=== PATIENT | male | born 1955 | race Caucasian/White ===

== ENCOUNTER 2019-12-16 07:20 | Day surgery (SDC) | payer MEDICARE ==
[~2019-12-16] VITALS: Ht 186.7 cm; Wt 124.9 kg
[~2019-12-16 07:20] MED LIST: ASPIR-LOW81 MG PO; CARDI-OMEGA1000 MG PO; CATAPRES 0.1MG0.1 MG PO; CLONIDINE0.1 MG PO; DIABETA5 MG PO; EFFEXOR-XR150 MG PO; FISH OIL CONC1000 MG PO; FORTAMET1000 MG PO; FORTAMET500 MG PO; GLUCOPHAGE1000 MG PO; GLYBURIDE MICRON3 MG PO; HCTZ 25MG25 MG PO; HYDRALAZINE HCL25 MG PO; LISINOPRIL; LOPID 600M600 MG/TAB PO; MELLARIL; METFORMIN500 MG PO; MULTIPLE VITAMI1 TA5 PO; MULTIPLE VITAMI1 TAB PO; MVI; NEPHRO-VITE1 TA1 PO; PRAVASTATIN40 MG PO; PRILOSEC 20MG20 MG PO; THIORIDAZINE HC25 MG PO; TOPROL XL100 MG PO; VESICARE5 MG PO; VITAMIN B COMPL1 TA1 PO; ZOCOR40 MG PO; ZOLOFT; ZOLOFT 100MG100 MG PO
[2019-12-16 08:07] LABS: HEMATOCRIT 44.5 % (42.0-52.0); HEMOGLOBIN 14.8 g/dl (13.5-18.0); MEAN CELL VOLUME 86 fl (80.0-100.0); MEAN CORPUSCULAR HEMOGLOBIN 29 pg (27.0-31.0); MEAN CORPUSCULAR HGB CONC 33 g/dl (33.0-37.0); MEAN PLATELET VOLUME 11.3 fl (7.4-10.4); PLATELET COUNT 206 K/mm3 (130-400); RED BLOOD COUNT 5.19 M/mm3 (4.20-5.60)
[2019-12-16 08:16] LABS: CALCIUM 9.4 mg/dL (8.4-10.2); CREATININE, serum 0.69 (0.66-1.25); POTASSIUM 4.5 mmol/L (3.4-5.0)
[2019-12-16 08:18] LABS: INR 1.2 (0.8-3.0); PROTHROMBIN TIME 13.4 SECONDS (9.7-12.8)
[2019-12-16 08:29] VITALS: BP 95/82; PULSE 78; TEMP 98.7
[2019-12-16] MEDS ORDERED: ELIQUIS 5MG PO (08:35)
[2019-12-16] MEDS ORDERED: GLUCOPHAGE1000 MG PO (08:35)
[2019-12-16] MEDS ORDERED: BETAPACE 120MG120 MG PO (08:36)
[2019-12-16] MEDS ORDERED: WELLBUTRIN 100100 MG PO (08:37)
[2019-12-16] MEDS ORDERED: TRULICITY1.5 MG/0.5 SQ (08:39)
[2019-12-16] MEDS ORDERED: MELATONIN5 M1 SL (08:40)
[2019-12-16] MEDS ORDERED: PROTONIX 40MG T40 MG PO (08:40)
[2019-12-16] MEDS ORDERED: ACTOS 15MG TAB15 MG PO (08:41)
[2019-12-16] MEDS ORDERED: KLONOPIN 0.5MG0.5 MG PO (08:42)
[2019-12-16] MEDS ORDERED: ZESTRIL 20MG TA20 MG PO (08:44)
[2019-12-16 08:46] LABS: THYROID STIMULATING HORMONE 4.35 uIU/mL (0.465-4.680)
[2019-12-16 09:40] VITALS: BP 99/62; PULSE 69
[2019-12-16 09:45] VITALS: BP 98/63; PULSE 69
[2019-12-16] MEDS ORDERED: BETAPACE160 MG PO (09:46)
[2019-12-16] MEDS ORDERED: TOPROL XL 50MG50 MG PO (09:47)
[2019-12-16 10:00] VITALS: BP 98/63; PULSE 69
[2019-12-16 10:15] VITALS: BP 97/62; PULSE 69
[2019-12-16 10:30] VITALS: BP 100/66; PULSE 69
--- NOTE | 2019-12-16 11:14 | NUR ---
Discharge instructions given to pt.pt verbalizes understanding.INT removed,catheter tip intact.Pt escorted out via wheelchair by this nurse.
== END 2019-12-16 11:18 | disposition home or self-care (01) ==
LOC: COL.CAR 07:20
PROVIDERS: Internal Medicine Cardiovascular Disease
DX: I48.0 Paroxysmal atrial fibrillation (principal); I25.10 Atherosclerotic heart disease of native coronary artery without angina pectoris; F32.9 Major depressive disorder, single episode, unspecified; E11.9 Type 2 diabetes mellitus without complications; I10 Essential (primary) hypertension; E78.5 Hyperlipidemia, unspecified; E66.01 Morbid (severe) obesity due to excess calories; E88.81 Metabolic syndrome and other insulin resistance; F17.290 Nicotine dependence, other tobacco product, uncomplicated; I08.1 Rheumatic disorders of both mitral and tricuspid valves; I25.2 Old myocardial infarction; Z95.1 Presence of aortocoronary bypass graft; Z91.048 Other nonmedicinal substance allergy status; Z88.8 Allergy status to other drugs, medicaments and biological substances; Z79.82 Long term (current) use of aspirin; Z79.02 Long term (current) use of antithrombotics/antiplatelets; Z79.4 Long term (current) use of insulin; Z95.0 Presence of cardiac pacemaker
CPT/HCPCS: J2704; J7030

== ENCOUNTER → 2020-03-23 | Outpatient (CLI) | payer MEDICARE ==
[~2020-03-23] MED LIST changes: +ACTOS 15MG TAB15 MG PO; +BETAPACE 120MG120 MG PO; +BETAPACE160 MG PO; +ELIQUIS 5MG PO; +KLONOPIN 0.5MG0.5 MG PO; +MELATONIN5 M1 SL; +PROTONIX 40MG T40 MG PO; +TOPROL XL 50MG50 MG PO; +TRULICITY1.5 MG/0.5 SQ; +WELLBUTRIN 100100 MG PO; +ZESTRIL 20MG TA20 MG PO
== END ==
LOC: ZCOL.LAB 16:29
DX: E11.621 Type 2 diabetes mellitus with foot ulcer (principal); L97.509 Non-pressure chronic ulcer of other part of unspecified foot with unspecified severity

== ENCOUNTER → 2020-05-04 | Outpatient (CLI) | payer MEDICARE | LOC: ZCOL.LAB 16:23 | DX: E13.621 Other specified diabetes mellitus with foot ulcer (principal); L97.509 Non-pressure chronic ulcer of other part of unspecified foot with unspecified severity ==

== ENCOUNTER 2020-06-15 11:23 | Outpatient (CLI) | payer MEDICARE ==
[2020-06-15] VITALS (10 sets, daily range): BP systolic 101–118; BP diastolic 55–74; PULSE 67–70; TEMP 98.4
[~2020-06-15] VITALS: Ht 186.8 cm; Wt 138.1 kg
[~2020-06-15 11:23] MED LIST changes: -ACTOS 15MG TAB15 MG PO; +ACTOS30 MG
[2020-06-15 12:42] LABS: HEMATOCRIT 40.5 % (42.0-52.0); HEMOGLOBIN 13.5 g/dl (13.5-18.0); MEAN CELL VOLUME 86 fl (80.0-100.0); MEAN CORPUSCULAR HEMOGLOBIN 29 pg (27.0-31.0); MEAN CORPUSCULAR HGB CONC 33 g/dl (33.0-37.0); MEAN PLATELET VOLUME 11.7 fl (7.4-10.4); PLATELET COUNT 214 K/mm3 (130-400); RED BLOOD COUNT 4.69 M/mm3 (4.20-5.60); REDCELL DISTRIBUTION WIDTH-CV 14.4 % (11.5-14.5)
[2020-06-15 12:51] LABS: CALCIUM 9.3 mg/dL (8.4-10.2); CREATININE, serum 0.8 (0.66-1.25); POTASSIUM 4.4 mmol/L (3.4-5.0)
[2020-06-15 13:03] LABS: INR 6.4 (0.8-3.0); PROTHROMBIN TIME 72.6 SECONDS (9.7-12.8)
[2020-06-15] MEDS ORDERED: TOPROL XL 50MG50 MG PO (13:21)
[2020-06-15] MEDS ORDERED: ASPIRIN E.C. 8181 MG PO (13:27)
[2020-06-15] MEDS ORDERED: ZETIA 10MG TAB10 MG PO (13:27)
[2020-06-15] MEDS ORDERED: LASIX 40MG TABL40 MG PO (13:28)
[2020-06-15] MEDS ORDERED: K-DUR 10 MEQ T10 MEQ PO (13:29)
[2020-06-15] MEDS ORDERED: GLUCOTROL XL5 MG/TAB PO (13:29)
[2020-06-15] MEDS ORDERED: BETAPACE 120MG120 MG PO (13:30)
[2020-06-15] MEDS ORDERED: COUMADIN 5MG5 MG/TAB PO ×2 (13:31)
[2020-06-15 14:13] LABS: INR 6.6 (0.8-3.0); PROTHROMBIN TIME 75.7 SECONDS (9.7-12.8)
--- NOTE | 2020-06-15 16:10 | NUR ---
I assumed care of pt at approx 1400 from Mirian KENNEDY. Pt is awake and alert, pwd with no complaints. pt was treated with vitamin K as ordered for elevated INT. Pt tolerated this infusion with no adverse effects. He was ambulatory in room with no problem. I reviewed dc, rx and fu instructions with pt and with his . Both verbalized understanding. iv was dc'd with cath intact, dressing was applied. Pt escorted to exit via wheelchair.
== END 2020-06-15 16:15 | disposition home or self-care (01) ==
LOC: COL.RAD 11:23
PROVIDERS: Internal Medicine Cardiovascular Disease
DX: I08.1 Rheumatic disorders of both mitral and tricuspid valves (principal); I45.10 Unspecified right bundle-branch block; Z20.828 Contact with and (suspected) exposure to other viral communicable diseases; Z95.0 Presence of cardiac pacemaker; Z95.818 Presence of other cardiac implants and grafts
CPT/HCPCS: J2704; J3430

== ENCOUNTER → 2020-08-05 | Outpatient (CLI) | payer MEDICARE ==
[~2020-08-05] MED LIST changes: -ACTOS30 MG; +ACTOS30 MG PO; +AMOXICILLIN 8751 TAB PO; +ASPIRIN E.C. 8181 MG PO; +CEPHALEXIN500 M1 PO; +COUMADIN 5MG5 MG/TAB PO; +GLUCOTROL XL5 MG/TAB PO; +IRON TABLETS325 MG PO; +K-DUR 10 MEQ T10 MEQ PO; +LASIX 40MG TABL40 MG PO; +PLAVIX 75MG TAB75 MG PO; +PROBIOTIC-MAJOR PO; +ZETIA 10MG TAB10 MG PO; +ZYRTEC ALLERGY10 MG PO
== END ==
LOC: COL.RAD
DX: E13.621 Other specified diabetes mellitus with foot ulcer (principal)

== ENCOUNTER → 2020-08-05 | Outpatient (CLI) | payer MEDICARE | LOC: ZCOL.LAB 16:50 | DX: E13.621 Other specified diabetes mellitus with foot ulcer (principal) ==

== ENCOUNTER 2020-09-18 03:50 | Inpatient (IN) | payer MEDICARE ==
[~2020-09-18] VITALS: Ht 182.9 cm; Wt 141.2 kg
[~2020-09-18 03:50] MED LIST changes: -AMOXICILLIN 8751 TAB PO; -CEPHALEXIN500 M1 PO; -IRON TABLETS325 MG PO; -PLAVIX 75MG TAB75 MG PO; -PROBIOTIC-MAJOR PO; -ZYRTEC ALLERGY10 MG PO
[2020-09-18 04:54] LABS: HEMATOCRIT 38.9 % (42.0-52.0); MEAN CELL VOLUME 88 fl (80.0-100.0); MEAN CORPUSCULAR HEMOGLOBIN 29 pg (27.0-31.0); MEAN CORPUSCULAR HGB CONC 33 g/dl (33.0-37.0); MEAN PLATELET VOLUME 11.8 fl (7.4-10.4); PLATELET COUNT 181 K/mm3 (130-400); RED BLOOD COUNT 4.44 M/mm3 (4.20-5.60); REDCELL DISTRIBUTION WIDTH-CV 12.9 % (11.5-14.5)
[2020-09-18 05:06] LABS: ALBUMIN 4.3 gm/dL (3.5-5.0); BILIRUBIN,TOTAL 0.4 mg/dL (0.0-1.0); CALCIUM 9.3 mg/dL (8.4-10.2); CREATININE, serum 0.74 (0.66-1.25); POTASSIUM 3.7 mmol/L (3.4-5.0); TOTAL PROTEIN 8.1 gm/dL (6.4-8.2)
[2020-09-18 05:15] LABS: TROPONIN-I 0.024 ng/mL (0.000-0.035)
[2020-09-18 05:39] LABS: BAND 27 % (0-10); LYMPHOCYTE 5 % (20.0-51.0); NEUTROPHILS 66 % (42.0-75.2); PLATELET ESTIMATE NORMAL (NORMAL)
[2020-09-18 06:43] LABS: COLLECTION METHOD CLEAN CATCH
[2020-09-18 06:50] LABS: MUCOUS Present /lpf; PH 5 (5-8); SQUAMOUS EPITHELIAL None Seen /hpf; URINE APPEARANCE Clear; URINE BACTERIA None Seen /hpf; URINE BILIRUBIN Negative (NEGATIVE); URINE BLOOD 2+ (NEGATIVE); URINE COLOR Yellow; URINE GLUCOSE 2+ (NEGATIVE); URINE KETONE Trace (NEGATIVE); URINE LEUKOCYTE ESTERASE Negative (NEGATIVE); URINE NITRATE Negative (NEGATIVE); URINE PROTEIN(semi-quant) 2+ (NEGATIVE); URINE RBC 20-50 /hpf; URINE UROBILINOGEN Negative (NEGATIVE)
[2020-09-18 07:53] LABS: INR 1.3 (0.8-3.0)
--- NOTE | 2020-09-18 11:01 | NUR ---
Vancomycin Initial Dosing Pharmacy Note Ordering provider: Sarath Jessica MD Indication/duration: Cellulitis, chronic wound management Relevant comorbidities: Obesity LABS: eCrCl > 100 mL/min Recommendation: Loading dose: 2 grams given in ED Maintenance dose: 1.5 grams every 12 hours Trough goal: 10-15 ug/mL Pharmacy will continue to follow.
[2020-09-18 11:45] VITALS: BP 102/56; PULSE 71; TEMP 98
--- NOTE | 2020-09-18 11:56 | NUR ---
FRANCO met with patient and Marta (P# [phone]) to conduct intake evaluation. Patient lives at home in [place] with his . Patient does not have DPOA. Family was not interested in paperwork. Patient's PCP is Dr. Lara, and he uses [facility] for pharmacy needs. Patient requires no assistance with ADLs and uses a CPAP acquired through [facility]. Patient denies needing assistance with affording medications. Patient plans to return home at discharge with providing transportation. Social work will continue to follow. Other contact is son Dejuan ([phone]).
[2020-09-18] MEDS ORDERED: PLAVIX 75MG TAB75 MG PO (12:26)
[2020-09-18 16:36] VITALS: BP 117/59; PULSE 67; TEMP 98.5
--- NOTE | 2020-09-18 19:43 | NUR ---
PT TRANSFERRED TO ROOM 351 BY ED STAFF. PT AMBULATES FINE, DENIES PAIN, STATES SOB AND FATIGUE HAS GREATLY IMPROVED UPON ABX ADMINISTRATION. ATTEMPTING TO MANAGE PTS BLOOD SUGARS WHICH HAVE BEEN HIGH TODAY, PT MANAGES WITH ORAL MEDICATION AT HOME.
[2020-09-18 19:45] VITALS: BP 127/64; PULSE 60; TEMP 99.6
--- NOTE | 2020-09-18 22:12 | NUR ---
Shift assessment completed. Patient A/O x4. Patient denies any pain, headache, dizziness, weakness, or N/V. Patient reports SOB with exertion and also having constipation. Called SHASHI Lyons and received order for Colace and Miralax. All scheduled meds given per MAR. BS 294 tonight. Novolog given per sliding scale. Righ lower leg cellulitis site reddened. Patient denies any pain or discomfort to right lower leg area. Right great toe open wound area covered with dry gauze. Call light within reach. Patient denies any needs at this time.
[2020-09-18 23:15] VITALS: BP 130/71; PULSE 57; TEMP 102.5
[2020-09-19] VITALS (7 sets, daily range): BP systolic 121–139; BP diastolic 58–70; PULSE 67–82; TEMP 97.9–100.8
--- NOTE | 2020-09-19 03:21 | NUR ---
Patient reports IV was pulled out accidentally while trying to reposition himself. 22G IV started to right hand with first try at 03:15 am. Patient tolerated well. Temp recheck was 99.6 F at this time. Call light within reach. Patient denies any needs at this time.
--- NOTE | 2020-09-19 06:45 | NUR ---
PT SITTING IN RECLINER, C/O NOT GETTING GOOD SLEEP. PT STATES HE STILL FEELS CONSTIPATION, AND DOES NOT WANT TO ORDER BREAKFAST, BUT JUST HAVE SOME CHICKEN BROTH AT THIS TIME. NO OTHRE CONCERNS AT THIS TIME. CALL LIGHT WITHIN REACH.
[2020-09-19 07:47] LABS: HEMOGLOBIN 11.5 g/dl (13.5-18.0); MEAN CELL VOLUME 87 fl (80.0-100.0); MEAN CORPUSCULAR HEMOGLOBIN 29 pg (27.0-31.0); MEAN CORPUSCULAR HGB CONC 34 g/dl (33.0-37.0); MEAN PLATELET VOLUME 12.6 fl (7.4-10.4); PLATELET COUNT 194 K/mm3 (130-400); RED BLOOD COUNT 3.93 M/mm3 (4.20-5.60); REDCELL DISTRIBUTION WIDTH-CV 12.9 % (11.5-14.5)
[2020-09-19 07:48] LABS: CALCIUM 8.7 mg/dL (8.4-10.2); CREATININE, serum 0.67 (0.66-1.25); POTASSIUM 3.5 mmol/L (3.4-5.0)
[2020-09-19 07:49] LABS: HEMATOCRIT 34.2 % (42.0-52.0)
[2020-09-19 09:11] LABS: BAND 32 % (0-10); LYMPHOCYTE 14 % (20.0-51.0); NEUTROPHILS 49 % (42.0-75.2); PLATELET ESTIMATE NORMAL (NORMAL)
--- NOTE | 2020-09-19 10:25 | NUR ---
Initial visit; Patient thanked Shopping Centre Manager for looking in on him and offering God's blessings.
[2020-09-19] MEDS ORDERED: ZYRTEC ALLERGY10 MG PO (12:26)
--- NOTE | 2020-09-19 12:42 | NUR ---
PT IS LAYING IN BED EATING LUNCH AND HAS NO COMPLAINTS AT THIS TIME.
--- NOTE | 2020-09-19 13:53 | NUR ---
DR. BARRON TO SEE PATIENT, HOWEVER PATIENT WAS IN THE BATHROOM AT THE TIME. DR. BARRON SAID HE WOULD RETURN LATER TO SEE THE PATIENT.
[2020-09-19 14:14] LABS: COLLECTION METHOD CLEAN CATCH
[2020-09-19 14:21] LABS: PH 5 (5-8); SQUAMOUS EPITHELIAL 0-2 /hpf; URINE APPEARANCE Hazy; URINE BACTERIA None Seen /hpf; URINE BILIRUBIN Negative (NEGATIVE); URINE BLOOD Negative (NEGATIVE); URINE COLOR Yellow; URINE GLUCOSE 2+ (NEGATIVE); URINE KETONE Negative (NEGATIVE); URINE LEUKOCYTE ESTERASE Negative (NEGATIVE); URINE NITRATE Negative (NEGATIVE); URINE PROTEIN(semi-quant) 2+ (NEGATIVE); URINE RBC 0-2 /hpf; URINE UROBILINOGEN Negative (NEGATIVE)
--- NOTE | 2020-09-19 14:30 | NUR ---
PT recommends home with outpatient PT. SW met with the patient and his to review d/c plan and to discuss PT's recommendation. The patient and his report that the patient is already set up at [facility] for outpatient PT and he goes three times a week. They had no other questions or concerns for SW. No additional needs at this time. *Discharge plan: home with and outpatient PT*
[2020-09-20 00:05] VITALS: BP 119/63; PULSE 62; TEMP 98.2
[2020-09-20 03:43] VITALS: BP 124/72; PULSE 84; TEMP 98.7
--- NOTE | 2020-09-20 05:33 | NUR ---
PATIENT HAD SLEEP FILLED NIGHT, PATIENT DID EXPERIENCE A SINGLE EPISODE OF "GASSIENESS" BUT THIS RELEIVED THE GAS THAT WAS "BUILDING FROM DINNER". PATIENT HAD QUIET NIGHT AFTER THIS WITH NEE OR C/O VOICED.
[2020-09-20 07:23] LABS: HEMOGLOBIN 10.5 g/dl (13.5-18.0); MEAN CELL VOLUME 89 fl (80.0-100.0); MEAN CORPUSCULAR HEMOGLOBIN 30 pg (27.0-31.0); MEAN CORPUSCULAR HGB CONC 33 g/dl (33.0-37.0); MEAN PLATELET VOLUME 12.2 fl (7.4-10.4); PLATELET COUNT 208 K/mm3 (130-400); RED BLOOD COUNT 3.54 M/mm3 (4.20-5.60); REDCELL DISTRIBUTION WIDTH-CV 12.9 % (11.5-14.5)
[2020-09-20 07:25] LABS: HEMATOCRIT 31.4 % (42.0-52.0)
[2020-09-20 07:27] LABS: CALCIUM 8.9 mg/dL (8.4-10.2); CREATININE, serum 0.67 (0.66-1.25); MAGNESIUM 2.2 mg/dL (1.6-2.3); POTASSIUM 3.5 mmol/L (3.4-5.0)
--- NOTE | 2020-09-20 07:35 | NUR ---
PT IS UP AND WALKING WITH PHYSICAL THERAPY. THE PATIENT IS A&OX4, AND DENIES ANY NEEDS AT THIS TIME. NO OTHER CONCERNS AT THIS TIME. CALL LIGHT WITHIN REACH.
--- NOTE | 2020-09-20 08:30 | NUR ---
PT IS RESTING IN RECLINER, DECLINED BREAKFAST UNTIL ARRIVES, OFFERED TO ORDER FOR HIM BUT REFUSED. NO OTHER CONCERNS AT THIS TIME.
[2020-09-20] MEDS ORDERED: AMOXICILLIN 8751 TAB PO (09:18)
[2020-09-20 09:20] VITALS: BP 105/57; PULSE 70; TEMP 98.3
[2020-09-20] MEDS ORDERED: PROBIOTIC-MAJOR PO (09:29)
--- NOTE | 2020-09-20 12:02 | NUR ---
PT HAS BEEN DISCHARGED. NO QUESTIONS OR CONCERNS AT THIS TIME. PT WILL BE WHEELED OUT THROUGH PT ADMISSIONS.
--- NOTE | 2020-09-20 14:42 | NUR ---
The patient discharged home today, 09/20 with OP PT. The patient is going home with oral antibiotics. There are no additional needs
== END 2020-09-20 12:03 | disposition home or self-care (01) | DRG 872 ==
LOC: COL.ER 03:50 → MEDICAL 06:43
PROVIDERS: Emergency Medicine; Physician Assistant; ADMIT Family Medicine
DX: A41.9 Sepsis, unspecified organism (principal); L03.115 Cellulitis of right lower limb; I50.22 Chronic systolic (congestive) heart failure; E87.1 Hypo-osmolality and hyponatremia; Z68.41 Body mass index [BMI] 40.0-44.9, adult; I11.0 Hypertensive heart disease with heart failure; R79.89 Other specified abnormal findings of blood chemistry; F32.9 Major depressive disorder, single episode, unspecified; E66.9 Obesity, unspecified; F41.9 Anxiety disorder, unspecified; I25.10 Atherosclerotic heart disease of native coronary artery without angina pectoris; F17.210 Nicotine dependence, cigarettes, uncomplicated; Z95.1 Presence of aortocoronary bypass graft; R31.9 Hematuria, unspecified; R80.9 Proteinuria, unspecified; E87.6 Hypokalemia; E78.5 Hyperlipidemia, unspecified; K21.9 Gastro-esophageal reflux disease without esophagitis; Z86.14 Personal history of Methicillin resistant Staphylococcus aureus infection; E11.65 Type 2 diabetes mellitus with hyperglycemia; B95.4 Other streptococcus as the cause of diseases classified elsewhere; E78.00 Pure hypercholesterolemia, unspecified; I48.0 Paroxysmal atrial fibrillation; Z79.82 Long term (current) use of aspirin; Z79.02 Long term (current) use of antithrombotics/antiplatelets; Z79.84 Long term (current) use of oral hypoglycemic drugs; Z95.0 Presence of cardiac pacemaker
CPT/HCPCS: 99232-AI; 99239; J1650; J1815; J2543; J3370; J7040; J7050; Q9967

== ENCOUNTER 2020-11-30 08:52 | Day surgery (SDC) | payer MEDICARE ==
[2020-11-30] VITALS (8 sets, daily range): BP systolic 102–125; BP diastolic 60–74; PULSE 59–76; TEMP 97.8–98.5
[~2020-11-30] VITALS: Ht 183 cm; Wt 137.8 kg
[~2020-11-30 08:52] MED LIST changes: +AMOXICILLIN 8751 TAB PO; +PLAVIX 75MG TAB75 MG PO; +PROBIOTIC-MAJOR PO; +ZYRTEC ALLERGY10 MG PO
[2020-11-30] MEDS ORDERED: EFFEXOR-XR150 MG PO (09:19)
[2020-11-30] MEDS ORDERED: IRON TABLETS325 MG PO (09:20)
[2020-11-30 09:44] LABS: HEMATOCRIT 39.5 % (42.0-52.0); HEMOGLOBIN 12.8 g/dl (13.5-18.0); MEAN CELL VOLUME 85 fl (80.0-100.0); MEAN CORPUSCULAR HEMOGLOBIN 28 pg (27.0-31.0); MEAN CORPUSCULAR HGB CONC 32 g/dl (33.0-37.0); MEAN PLATELET VOLUME 11.6 fl (7.4-10.4); PLATELET COUNT 190 K/mm3 (130-400); RED BLOOD COUNT 4.64 M/mm3 (4.20-5.60); REDCELL DISTRIBUTION WIDTH-CV 14.2 % (11.5-14.5)
[2020-11-30 09:51] LABS: INR 1.1 (0.8-3.0); PROTHROMBIN TIME 11.7 SECONDS (9.7-12.8)
[2020-11-30 09:54] LABS: CALCIUM 9.5 mg/dL (8.4-10.2); CREATININE, serum 0.78 (0.66-1.25)
--- NOTE | 2020-11-30 10:43 | NUR ---
SEE MERGE FOR ALL MEDICATION ADMINISTRATION TIMES, INTRA AND POST SEDATION ASSESSMENTS
--- NOTE | 2020-11-30 19:07 | NUR ---
Patient has been doing well since his pacemaker placement. This patient is very pleasant and has had no c/o pain. This RN does have to frequently remind him to limit the use of his left arm d/t the pacemaker placement. His has been with him in the room and reminds him not to use his left arm.
--- NOTE | 2020-11-30 20:30 | NUR ---
Initial shift assessment done- VSS, denies pain at this time, Tele on - paced 60/min,, left chest dressing dry and intact- left arm sling on. INT to R/FA, VSS
[2020-12-01 05:00] VITALS: BP 107/69; PULSE 66; TEMP 98.1
--- NOTE | 2020-12-01 05:48 | NUR ---
Quiet night-- pt slept fair between interruptions- left chest site incision site dressing dry- left arm sling on,, pt denies pain, denies need for ice to incision. Tele on- paced
[2020-12-01 07:16] LABS: BASO % 0.4 % (0.0-2.0); EOS # 0.2 (0.0-0.7); EOS % 1.9 % (0-4.0); GRAN # 5.5 (1.4-6.5); GRAN % 65.5 % (42.2-75.2); HEMATOCRIT 38.5 % (42.0-52.0); HEMOGLOBIN 12.5 g/dl (13.5-18.0); LYMPH # 1.9 (1.2-3.4); LYMPH % 22.3 % (20.0-51.0); MEAN CELL VOLUME 87 fl (80.0-100.0); MEAN CORPUSCULAR HEMOGLOBIN 28 pg (27.0-31.0); MEAN CORPUSCULAR HGB CONC 33 g/dl (33.0-37.0); MONO # 0.8 (0.1-0.6); MONO % 9.7 % (1.7-9.3); PLATELET COUNT 188 K/mm3 (130-400); RED BLOOD COUNT 4.44 M/mm3 (4.20-5.60); REDCELL DISTRIBUTION WIDTH-CV 14.3 % (11.5-14.5)
[2020-12-01 07:36] LABS: CALCIUM 9.3 mg/dL (8.4-10.2); CREATININE, serum 0.8 (0.66-1.25); MAGNESIUM 1.9 mg/dL (1.6-2.3); POTASSIUM 3.9 mmol/L (3.4-5.0)
[2020-12-01 09:30] VITALS: BP 111/68; PULSE 61; TEMP 98.9
[2020-12-01] MEDS ORDERED: CEPHALEXIN500 M1 PO (10:22)
--- NOTE | 2020-12-01 12:03 | NUR ---
First visit from the saw edge fuser circular. No needs right now.
--- NOTE | 2020-12-01 12:28 | NUR ---
Patient did well today and had no complaints of pain. This RN still had to frequently remind the patient not to use his left arm, as did the patient's . The patient has been discharged and walked out of the facility with this RN at approx. 1215.
== END 2020-12-01 12:30 | disposition home or self-care (01) ==
LOC: COL.CAR 08:52 → MEDICAL 13:43 → COL.CAR 12-01 12:30
PROVIDERS: Internal Medicine Cardiovascular Disease
DX: Z45.02 Encounter for adjustment and management of automatic implantable cardiac defibrillator (principal); I25.5 Ischemic cardiomyopathy; I48.0 Paroxysmal atrial fibrillation; I25.10 Atherosclerotic heart disease of native coronary artery without angina pectoris; I25.119 Atherosclerotic heart disease of native coronary artery with unspecified angina pectoris; I47.2 Ventricular tachycardia; I08.1 Rheumatic disorders of both mitral and tricuspid valves; I10 Essential (primary) hypertension; E66.01 Morbid (severe) obesity due to excess calories; E78.49 Other hyperlipidemia; E11.621 Type 2 diabetes mellitus with foot ulcer; L97.529 Non-pressure chronic ulcer of other part of left foot with unspecified severity; E78.5 Hyperlipidemia, unspecified; E88.81 Metabolic syndrome and other insulin resistance; F32.9 Major depressive disorder, single episode, unspecified; F17.210 Nicotine dependence, cigarettes, uncomplicated; Z79.82 Long term (current) use of aspirin; Z79.84 Long term (current) use of oral hypoglycemic drugs; Z79.899 Other long term (current) drug therapy; Z95.1 Presence of aortocoronary bypass graft; Z80.9 Family history of malignant neoplasm, unspecified
CPT/HCPCS: OP; C1769; C1882; C1894; C1900; J0690; J1940; J2250; J3010; J7030; Q9967

== ENCOUNTER 2020-12-27 13:46 | Outpatient (CLI) | payer MEDICARE ==
[~2020-12-27] VITALS: Ht 182.9 cm; Wt 137.0 kg
[~2020-12-27 13:46] MED LIST changes: +CEPHALEXIN500 M1 PO; +IRON TABLETS325 MG PO
[2020-12-27 15:58] VITALS: BP 100/62; PULSE 62; TEMP 99.3
[2020-12-27 16:25] VITALS: BP 113/78; PULSE 60; TEMP 99.3
--- NOTE | 2020-12-27 16:25 | NUR ---
Pt tolerated infusion with no adverse or allergic reactions. Pt's vitals were monitored throughout the infusion, his bp's were sbp90's-100s, hr 60's, normal resp rate and o2 sats high 90's. Iv dc'd at end of monitoring period and pt was escorted out via wheelchair.
== END 2020-12-27 16:25 | disposition home or self-care (01) ==
LOC: EUO 13:46
DX: E66.9 Obesity, unspecified (principal); Z23 Encounter for immunization
CPT/HCPCS: Q0244

== ENCOUNTER → 2021-01-26 | Outpatient (CLI) | payer MEDICARE | LOC: ZCOL.LAB 16:42 | DX: E13.621 Other specified diabetes mellitus with foot ulcer (principal) ==

== ENCOUNTER → 2021-02-17 | Outpatient (CLI) | payer MEDICARE | LOC: COL.RAD 12:08 | DX: E13.621 Other specified diabetes mellitus with foot ulcer (principal); I10 Essential (primary) hypertension; L03.115 Cellulitis of right lower limb; M86.8X7 Other osteomyelitis, ankle and foot; Z95.0 Presence of cardiac pacemaker | CPT/HCPCS: A9585 ==

== ENCOUNTER 2021-02-22 08:12 | Day surgery (SDC) | payer MEDICARE ==
[~2021-02-22] VITALS: Ht 188 cm; Wt 134.3 kg
[2021-02-22 09:12] VITALS: BP 116/68; PULSE 60; TEMP 97.3
[2021-02-22] MEDS ORDERED: AMOXICILLIN 8751 TAB PO (09:51)
[2021-02-22 11:35] VITALS: BP 106/57; PULSE 60; TEMP 97.4
--- NOTE | 2021-02-22 11:35 | NUR ---
Patient returned to [place] [facility] via cart. Drowsy, but oriented. Postop vitals started. BG 153. Coffee and muffin provided. Operative site bandages are clean and dry. MRSA contact procautions followed.
[2021-02-22 11:50] VITALS: BP 122/69; PULSE 61
--- NOTE | 2021-02-22 11:50 | NUR ---
Patient resting high peralta, denies discomfort. Tolerating food and drink well. at bedside.
[2021-02-22 12:05] VITALS: BP 120/77; PULSE 60
--- NOTE | 2021-02-22 12:05 | NUR ---
Patient high fowlers in bed. Denies discomfort. Up to bathroom using crutches, able to void without difficulty. Tolerating food and drink well.
--- NOTE | 2021-02-22 12:45 | NUR ---
Patient dress into personal clothing. Reviewed discharge instructions and education material, patient and verbalized understanding. Discontinued IV with no complications. Transfered patient to personal vehicle via wheel chair accompanied by .
== END 2021-02-22 12:55 | disposition home or self-care (01) ==
LOC: SDCO 08:12
DX: E11.69 Type 2 diabetes mellitus with other specified complication (principal); M86.9 Osteomyelitis, unspecified; I25.2 Old myocardial infarction; E78.00 Pure hypercholesterolemia, unspecified; E11.42 Type 2 diabetes mellitus with diabetic polyneuropathy; I48.91 Unspecified atrial fibrillation; I50.9 Heart failure, unspecified; I51.9 Heart disease, unspecified; D64.9 Anemia, unspecified; F17.290 Nicotine dependence, other tobacco product, uncomplicated; F32.9 Major depressive disorder, single episode, unspecified; Z79.84 Long term (current) use of oral hypoglycemic drugs; Z79.01 Long term (current) use of anticoagulants; Z79.891 Long term (current) use of opiate analgesic; Z80.52 Family history of malignant neoplasm of bladder; G47.33 Obstructive sleep apnea (adult) (pediatric); Z99.89 Dependence on other enabling machines and devices
CPT/HCPCS: J0690; J2250; J2704; J2795; J3010; J7030

== ENCOUNTER → 2021-04-19 | Outpatient (CLI) | payer MEDICARE | LOC: ZCOL.LAB 16:56 | DX: E13.621 Other specified diabetes mellitus with foot ulcer (principal) ==

== ENCOUNTER → 2021-05-09 | Outpatient (CLI) | payer MEDICARE | LOC: COL.RAD 12:04 | DX: E13.621 Other specified diabetes mellitus with foot ulcer (principal); L03.115 Cellulitis of right lower limb; Z89.9 Acquired absence of limb, unspecified | CPT/HCPCS: A9575 ==

== ENCOUNTER → 2021-06-23 | Outpatient (CLI) | payer MEDICARE | LOC: ZCOL.LAB 16:14 | DX: E13.621 Other specified diabetes mellitus with foot ulcer (principal) ==

== ENCOUNTER 2021-09-26 11:31 | Day surgery (SDC) | payer MEDICARE ==
[~2021-09-26] VITALS: Ht 188.1 cm; Wt 141.2 kg
[2021-09-26] MEDS ORDERED: WELLBUTRIN SR100 M1 PO (12:02)
[2021-09-26] MEDS ORDERED: SMZ/TMP PO (12:05)
[2021-09-26] MEDS ORDERED: LANTUS100 U/ML SQ (12:09)
[2021-09-26] MEDS ORDERED: TOPROL XL100 MG PO (12:20)
[2021-09-26] MEDS ORDERED: PACERONE400 MG PO (12:21)
[2021-09-26 12:31] VITALS: BP 105/77; PULSE 69; TEMP 98.4
--- NOTE | 2021-09-26 12:40 | NUR ---
Medication changes reviewed with pt and . Both express understanding. Pt is assisted out to 's car by wheelchair with belongings.
== END 2021-09-26 12:40 | disposition home or self-care (01) ==
LOC: COL.CAR 11:31
DX: I48.0 Paroxysmal atrial fibrillation (principal)
CPT/HCPCS: J2704

== ENCOUNTER 2021-10-19 12:03 | Inpatient (IN) | payer MEDICARE ==
[~2021-10-19] VITALS: Ht 185.4 cm; Wt 130.0 kg
[~2021-10-19 12:03] MED LIST changes: +LANTUS100 U/ML SQ; +PACERONE400 MG PO; +SMZ/TMP PO; +WELLBUTRIN SR100 M1 PO
[2021-10-19] MEDS ORDERED: ALDACTONE 25MG25 M1 PO (14:18)
[2021-10-19] MEDS ORDERED: PROTONIX 40MG T40 MG PO (14:19)
[2021-10-19 15:28] LABS: BASO # 0.1 K/mm3 (0.0-0.2); BASO % 0.6 % (0.0-2.0); EOS # 0.1 K/mm3 (0.0-0.7); EOS % 1.4 % (0.0-4.0); GRAN # 6.4 K/mm3 (1.4-6.5); GRAN % 75.4 % (42.2-75.2); HEMOGLOBIN 16.8 g/dl (13.5-18.0); LYMPH # 1.2 K/mm3 (1.2-3.4); MEAN CELL VOLUME 85 fl (80.0-100.0); MEAN CORPUSCULAR HEMOGLOBIN 27 pg (27-31); MEAN CORPUSCULAR HGB CONC 32 g/dl (33.0-37.0); MEAN PLATELET VOLUME 12.5 fl (7.4-10.4); MONO # 0.7 K/mm3 (0.1-0.6); MONO % 8.2 % (1.7-9.3); PLATELET COUNT 215 K/mm3 (130-400); RED BLOOD COUNT 6.18 M/mm3 (4.20-5.60); REDCELL DISTRIBUTION WIDTH-CV 16.8 % (11.5-14.5)
[2021-10-19 15:29] LABS: HEMATOCRIT 52.2 % (42.0-52.0)
[2021-10-19 15:38] LABS: CALCIUM 9.1 mg/dL (8.4-10.2); CREATININE, serum 1.39 mg/dL (0.72-1.25); POTASSIUM 4.5 mmol/L (3.5-4.5)
[2021-10-19 16:37] VITALS: BP 131/87; PULSE 69; TEMP 98.3
[2021-10-19 20:44] VITALS: BP 113/85; PULSE 70; TEMP 97.6
[2021-10-20 00:36] VITALS: BP 116/90; PULSE 74; TEMP 97.5
--- NOTE | 2021-10-20 03:13 | NUR ---
ASSESSMENT COMPLETE FOR THIS SHIFT. PT RESTING IN BED WATCHING THE NEWS. PT DENIED PAIN, PALPITATIONS, SOB, N,V,D OR DIZZINESS. PT ON LASIX DRIP. PT TOLERATING WELL. PT'S ONLY COMPLAINT IS THE CONSTANT URINATION. PT'S HS BS WAS 90. LEVEMIR HELD. BS RECHECKED AT MIDNIGHT. MIDNIGHT BS WAS 100. WILL CONTINUE TO MONITOR. PT EXPRESSED NO OTHER NEEDS AT THIS TIME. CALL LIGHT WITHIN REACH.
[2021-10-20 04:52] VITALS: BP 118/80; PULSE 58; TEMP 98.3
[2021-10-20 07:47] VITALS: BP 126/78; PULSE 70; TEMP 97.5
--- NOTE | 2021-10-20 08:45 | NUR ---
PT LAYING SUPINE IN BED ON ROOM AIR. PT STATES NO SOB OR PAIN AT THIS TIME. PT STATES "I HAVE JUST BEEN PEEING A LOT." LASIX DRIP IS GOING INTO RIGHT WRIST. SITE IS CLEAN, DRY AND HAS NO EDEMA OR REDNESS. IS AT BEDSIDE. STATES SHE WOULD LIKE TO GET PT CLEANED UP LATER. GOT PT SUPPLIES FOR BATH. PT STATES NO OTHER NEEDS OR CONCERNS AT THIS TIME. CALL LIGHT IS WITHIN REACH.
[2021-10-20 09:12] LABS: BASO % 0.6 % (0.0-2.0); EOS # 0.2 K/mm3 (0.0-0.7); EOS % 3.1 % (0.0-4.0); GRAN # 4.7 K/mm3 (1.4-6.5); GRAN % 68.1 % (42.2-75.2); HEMATOCRIT 47.5 % (42.0-52.0); HEMOGLOBIN 15.9 g/dl (13.5-18.0); LYMPH # 1.3 K/mm3 (1.2-3.4); LYMPH % 18.7 % (20.0-51.0); MEAN CELL VOLUME 82 fl (80.0-100.0); MEAN CORPUSCULAR HEMOGLOBIN 28 pg (27-31); MEAN CORPUSCULAR HGB CONC 34 g/dl (33.0-37.0); MONO # 0.6 K/mm3 (0.1-0.6); MONO % 9.1 % (1.7-9.3); PLATELET COUNT 208 K/mm3 (130-400); RED BLOOD COUNT 5.79 M/mm3 (4.20-5.60); REDCELL DISTRIBUTION WIDTH-CV 15.9 % (11.5-14.5)
[2021-10-20 09:19] LABS: INR 1.5 (0.8-3.0); PROTHROMBIN TIME 16.7 SECONDS (9.7-12.8)
--- NOTE | 2021-10-20 09:21 | NUR ---
FRANCO met with the patient and his , Marta (ph#[phone]), to discuss discharge plan. The patient lives in [place] with his . He reports independence with ADLs and has a cane available, if needed. He has a CPAP. The patient's PCP is Dr. Berenice Olmedo and he receives his medications at [facility]. The patient does not have a DPOA-HC and he was not interested in completing one at this time. The patient plans on returning home with his upon discharge. No additional needs at this time. *Discharge plan: home with *
[2021-10-20 09:31] LABS: ALBUMIN 3.3 gm/dL (3.4-4.8); BILIRUBIN,TOTAL 0.8 mg/dL (0.2-1.2); CALCIUM 8.6 mg/dL (8.4-10.2); CREATININE, serum 1.22 mg/dL (0.72-1.25); MAGNESIUM 1.8 mg/dL (1.6-2.6); POTASSIUM 3.7 mmol/L (3.5-4.5); TOTAL PROTEIN 6.7 gm/dL (6.2-8.1)
--- NOTE | 2021-10-20 09:40 | NUR ---
Initial visit; Patient and his thanked Clamp Carrier Operator for looking in on him and wishing him well and God's blessings. Both were quiet people but Clamp Carrier Operator did raise a smile and a thank you from them both.
[2021-10-20 11:54] VITALS: BP 118/78; PULSE 72; TEMP 97.9
[2021-10-20 16:00] VITALS: BP 107/63; PULSE 68; TEMP 97.9
--- NOTE | 2021-10-20 18:06 | NUR ---
PT LAYING SUPINE IN BED ON ROOM AIR. LASIX DRIP INFUSING INTO RIGHT WRIST. IV SITE IS CLEAN, DRY, INTACT. NO EDEMA OR REDNESS. PT STATES THAT HE IS NOT HAVING ANY SOB OR PAIN. "I FEEL BETTER THEN I HAVE IN WEEKS" PT IS HAVING INCREASED OUTPUT. AT BEDSIDE. PT AND STATE NO NEEDS OR CONCERNS AT THIS TIME. CALL LIGHT IS WITHIN REACH.
[2021-10-20 20:24] VITALS: BP 110/79; PULSE 70; TEMP 97.6
[2021-10-21 00:51] VITALS: BP 124/66; PULSE 79; TEMP 98.1
[2021-10-21 04:15] VITALS: BP 123/80; PULSE 69; TEMP 97.7
--- NOTE | 2021-10-21 06:15 | NUR ---
ASSESSMENT COMPLETE FOR THIS SHIFT. PT RESTING IN BED WATCHING TV. PT DENIED PAIN, PALPITATIONS, N,V,D, SOB OR DIZZINESS. PT WROTE DOWN ALL HIS OUTPUT, VERY HELPFUL. PT EXPRESSED NO OTHER NEEDS AT THIS TIME. CALL LIGHT WITHIN REACH.
[2021-10-21 06:46] LABS: BASO % 0.5 % (0.0-2.0); EOS # 0.2 K/mm3 (0.0-0.7); EOS % 3.6 % (0.0-4.0); GRAN # 3.7 K/mm3 (1.4-6.5); GRAN % 62.5 % (42.2-75.2); HEMATOCRIT 47.8 % (42.0-52.0); HEMOGLOBIN 15.6 g/dl (13.5-18.0); LYMPH # 1.3 K/mm3 (1.2-3.4); LYMPH % 21.5 % (20.0-51.0); MEAN CELL VOLUME 85 fl (80.0-100.0); MEAN CORPUSCULAR HEMOGLOBIN 28 pg (27-31); MEAN CORPUSCULAR HGB CONC 33 g/dl (33.0-37.0); MEAN PLATELET VOLUME 12.2 fl (7.4-10.4); MONO # 0.7 K/mm3 (0.1-0.6); MONO % 11.4 % (1.7-9.3); PLATELET COUNT 214 K/mm3 (130-400); RED BLOOD COUNT 5.66 M/mm3 (4.20-5.60); REDCELL DISTRIBUTION WIDTH-CV 16.1 % (11.5-14.5)
[2021-10-21 07:07] LABS: CALCIUM 8.4 mg/dL (8.4-10.2); CREATININE, serum 1.07 mg/dL (0.72-1.25); MAGNESIUM 1.8 mg/dL (1.6-2.6); POTASSIUM 3.7 mmol/L (3.5-4.5)
[2021-10-21 07:51] VITALS: BP 115/79; PULSE 79; TEMP 97.7
--- NOTE | 2021-10-21 08:20 | NUR ---
PT SITTING UP IN BED ON ROOM AIR WITH AT BEDSIDE. PT STATES THAT HE IS NOT HAVING ANY SOB AT THIS TIME. STATES THAT PT DOES HAVE A RED SPOT ON HIS LEFT CALF. SPOT WAS LOOKED AT AND IS NOT WARM TO TOUCH OR BOTHERING THE PT. PT HAS NO FEVER AT THIS TIME. PT STATES "IT MAY HAVE JUST BEEN WHERE I WAS LAYING ON IT." INFORMED PT AND TO MAKE SURE TO MENTION IT TO THE DRS WHEN THEY COME IN AND SEE HIM TODAY. THEY VOICED UNDERSTANDING. NO OTHER NEEDS/CONCERNS WERE VOICED. CALL LIGHT IS WITHIN REACH.
[2021-10-21 11:46] VITALS: BP 125/77; PULSE 77; TEMP 97.7
[2021-10-21 16:38] VITALS: BP 123/80; PULSE 64; TEMP 98.3
--- NOTE | 2021-10-21 18:07 | NUR ---
PT SITTING UP IN BED ON ROOM AIR WITH AT BEDSIDE. LASIX DRIP WAS DCd TODAY. PT IS STILL HAVING GOOD OUTPUT. PT STATES THAT HE IS NOT SOB OR HAVING ANY TROUBLE BREATHING OR PAIN. PT STILL DOES HAVE RED ZENA ON RIGHT CALF BUT IT HAS NOT GOTTEN ANY BIGGER OR HURT. PT STATES "IT IS OK" NOT WARM TO TOUCH. PT STATES NO NEEDS OR CONCERNS AT THIS TIME. CALL LIGHT IS WITHIN REACH.
[2021-10-21 20:25] VITALS: BP 107/77; PULSE 77; TEMP 98.4
[2021-10-22] VITALS (7 sets, daily range): BP systolic 97–122; BP diastolic 67–93; PULSE 80–84; TEMP 97.9–98.8
--- NOTE | 2021-10-22 05:45 | NUR ---
ASSESSMENT COMPLETE FOR THIS SHIFT. PT RESTING IN BED WATCHING THE NEWS. PT DENIED PAIN, PALPITATIONS, SOB, N,V,D OR DIZZINESS. PT HAD A PRETTY UNEVENTFUL NIGHT. PT EXPRESSED NO OTHER NEEDS AT THIS TIME. CALL LIGHT WITHIN REACH.
--- NOTE | 2021-10-22 08:50 | NUR ---
PT SITTING UP IN CHAIR ON ROOM AIR WITH AT BEDSIDE. PT STATES THAT HE "FEELS GOOD" NO SOB OR PAIN AT THIS TIME. STATES THAT THEY ALREADY GOT UP AND WENT FOR A LONG WALK AROUND THE HALLWAY AND PT TOLERATED VERY WELL. PT CONTINUES TO HAVE GOOD OUTPUT. PT STATES NO NEEDS AT THIS TIME. CALL LIGHT IS WITHIN REACH.
--- NOTE | 2021-10-22 18:23 | NUR ---
PT SITTING UP IN CHAIR WITH AT BEDSIDE. PT JUST FINISHING DINNER. PT STATES NO SOB OR PAIN AT THIS TIME. PT AND STATES NO NEEDS OR COCNERNS. CALL LIGHT IS WITHIN REACH.
[2021-10-23 03:53] VITALS: BP 99/68; PULSE 81; TEMP 98.3
--- NOTE | 2021-10-23 06:10 | NUR ---
ASSESSMENT COMPLETE FOR THIS SHIFT. PT RESTING IN BED WATCHING TV. PT DENIED PAIN, PALPITATIONS, SOB, N,V,D OR DIZZINESS. PT HAD A PRETTY UNEVENTFUL NIGHT. PT EXPRESSED NO OTHER NEEDS AT THIS TIME. CALL LIGHT WITHIN REACH.
[2021-10-23 06:47] LABS: BASO % 0.5 % (0.0-2.0); EOS # 0.2 K/mm3 (0.0-0.7); GRAN # 3.2 K/mm3 (1.4-6.5); GRAN % 55.1 % (42.2-75.2); HEMATOCRIT 51.4 % (42.0-52.0); HEMOGLOBIN 16.2 g/dl (13.5-18.0); LYMPH # 1.7 K/mm3 (1.2-3.4); MEAN CELL VOLUME 87 fl (80.0-100.0); MEAN CORPUSCULAR HEMOGLOBIN 27 pg (27-31); MEAN CORPUSCULAR HGB CONC 32 g/dl (33.0-37.0); MEAN PLATELET VOLUME 12.1 fl (7.4-10.4); MONO # 0.6 K/mm3 (0.1-0.6); MONO % 11.1 % (1.7-9.3); PLATELET COUNT 220 K/mm3 (130-400); RED BLOOD COUNT 5.94 M/mm3 (4.20-5.60); REDCELL DISTRIBUTION WIDTH-CV 16.7 % (11.5-14.5)
[2021-10-23 07:00] LABS: CALCIUM 8.4 mg/dL (8.4-10.2); CREATININE, serum 1.08 mg/dL (0.72-1.25); POTASSIUM 3.7 mmol/L (3.5-4.5)
[2021-10-23 07:23] VITALS: BP 111/54; PULSE 113; TEMP 97.5
--- NOTE | 2021-10-23 08:00 | NUR ---
Assessment complete. Denies pain/nausea/shortness of breath. VS remain stable. TELE reporting V Paced. Currently on RA. Right wrist INT flushes without difficulty. Noted to have scabbed areas to bilat toes. is at bedside. Plan of care discussed for thi shift to include meds/calling for questions/concerns. Verbalizes understanding. Call light in reach. Will monitor.
--- NOTE | 2021-10-23 09:30 | NUR ---
Order clarified with SHASHI Hair on fluid restriction order with no ordered amount. Instructed to restrict-1500mls.
[2021-10-23 11:35] VITALS: BP 124/82; PULSE 71; TEMP 97.6
--- NOTE | 2021-10-23 13:57 | NUR ---
Spoke with DR Greco about low blood pressure of 110s/50s-due for BP medications/lasix. Instructed to give AM doses.
[2021-10-23 15:37] VITALS: BP 134/71; PULSE 67; TEMP 97.4
--- NOTE | 2021-10-23 16:06 | NUR ---
IM form reviewed, signed and placed in chart. SW will continue to follow.
--- NOTE | 2021-10-23 16:57 | NUR ---
DPOA/HC documentation reviewed, signed and witnessed. Appointing Marta Dietrich. Original documenation placed in chart and copies provided to patient.
--- NOTE | 2021-10-23 18:31 | NUR ---
Patient had an uneventful day. Lasix was changed to PO. 1500 FR enforced. Tele reporting v paced. Currently on RA. Right wrist INT flushes well. Denies current needs. Call light in reach. Will monitor.
[2021-10-23 20:44] VITALS: BP 119/73; PULSE 72; TEMP 97.7
[2021-10-24 00:43] VITALS: BP 117/79; PULSE 70; TEMP 97.9
[2021-10-24 04:37] VITALS: BP 115/86; PULSE 70; TEMP 97.5
--- NOTE | 2021-10-24 06:45 | NUR ---
Report received, assumed care for day shift.
[2021-10-24 06:46] LABS: BASO # 0.1 K/mm3 (0.0-0.2); BASO % 0.7 % (0.0-2.0); EOS # 0.2 K/mm3 (0.0-0.7); EOS % 2.7 % (0.0-4.0); GRAN # 4.2 K/mm3 (1.4-6.5); GRAN % 59.8 % (42.2-75.2); HEMOGLOBIN 17.4 g/dl (13.5-18.0); LYMPH # 1.8 K/mm3 (1.2-3.4); LYMPH % 25.5 % (20.0-51.0); MEAN CELL VOLUME 84 fl (80.0-100.0); MEAN CORPUSCULAR HEMOGLOBIN 27 pg (27-31); MEAN CORPUSCULAR HGB CONC 33 g/dl (33.0-37.0); MEAN PLATELET VOLUME 12.1 fl (7.4-10.4); MONO # 0.8 K/mm3 (0.1-0.6); MONO % 10.9 % (1.7-9.3); PLATELET COUNT 230 K/mm3 (130-400); RED BLOOD COUNT 6.35 M/mm3 (4.20-5.60); REDCELL DISTRIBUTION WIDTH-CV 17.1 % (11.5-14.5)
[2021-10-24 06:59] LABS: HEMATOCRIT 53.6 % (42.0-52.0)
[2021-10-24 07:10] LABS: CALCIUM 8.9 mg/dL (8.4-10.2); CREATININE, serum 1.08 mg/dL (0.72-1.25); MAGNESIUM 2.1 mg/dL (1.6-2.6); POTASSIUM 3.9 mmol/L (3.5-4.5)
[2021-10-24 07:57] VITALS: BP 124/83; PULSE 67; TEMP 97.4
--- NOTE | 2021-10-24 08:00 | NUR ---
Assessment complete. A&Ox4. Denies pain/nausea. states patient was short of breath with ambulation this morning. VS remain stable. Tele reporting paced. Currently on room air. Right wrist INT flushes without difficulty. Plan of care discussed for this shift to include meds/possible DC/calling for questions/concerns. Verbalizes understanding. Call light in reach. Will monitor.
[2021-10-24] MEDS ORDERED: PACERONE400 MG PO (10:15)
[2021-10-24] MEDS ORDERED: ALDACTONE 25MG25 M1 PO (10:44)
[2021-10-24] MEDS ORDERED: LASIX 80MG TABL80 MG PO (10:45)
[2021-10-24] MEDS ORDERED: ZAROXOLYN5 MG PO (10:46)
[2021-10-24] MEDS ORDERED: PRINIVIL5 MG PO (10:48)
--- NOTE | 2021-10-24 11:00 | NUR ---
Discharge instructions given both verbal and handwritten. Discussed f/u appt, s/s of infections, when to return to ER and home medications. Verbalizes understanding. Discussed heart healthy diet. CHF packed given. INT to right forearm DCd at this time-cath intact. Escorted off [place] in wheelchair accompanied by spouse and DALE Perry in stable condition.
[2021-10-24 11:13] VITALS: BP 91/56; PULSE 76; TEMP 97.8
== END 2021-10-24 11:57 | disposition home or self-care (01) | DRG 291 ==
LOC: MEDICAL 12:03
PROVIDERS: Physician Assistant; Student in an Organized Health Care Education/Training Program
DX: I13.0 Hypertensive heart and chronic kidney disease with heart failure and stage 1 through stage 4 chronic kidney disease, or unspecified chronic kidney disease (principal); I50.23 Acute on chronic systolic (congestive) heart failure; R18.8 Other ascites; Z68.41 Body mass index [BMI] 40.0-44.9, adult; E66.01 Morbid (severe) obesity due to excess calories; N18.2 Chronic kidney disease, stage 2 (mild); E11.22 Type 2 diabetes mellitus with diabetic chronic kidney disease; E78.5 Hyperlipidemia, unspecified; I48.0 Paroxysmal atrial fibrillation; F32.A Depression, unspecified; I25.5 Ischemic cardiomyopathy; I34.0 Nonrheumatic mitral (valve) insufficiency; I77.810 Thoracic aortic ectasia; I25.10 Atherosclerotic heart disease of native coronary artery without angina pectoris; D64.9 Anemia, unspecified; K21.9 Gastro-esophageal reflux disease without esophagitis; M19.90 Unspecified osteoarthritis, unspecified site; Z79.82 Long term (current) use of aspirin; Z79.4 Long term (current) use of insulin; Z95.810 Presence of automatic (implantable) cardiac defibrillator; Z23 Encounter for immunization
CPT/HCPCS: 99223-AI; 99232-AI; 99233-AI; 99239; J1644; J1815; J1940

== ENCOUNTER 2022-01-29 21:36 | Inpatient (IN) | payer MEDICARE ==
[~2022-01-29] VITALS: Ht 185.4 cm; Wt 139.4 kg
[~2022-01-29 21:36] MED LIST changes: +ALDACTONE 25MG25 M1 PO; +LASIX 80MG TABL80 MG PO; +PRINIVIL5 MG PO; +ZAROXOLYN5 MG PO
[2022-01-29 22:49] LABS: BASO # 0.1 K/mm3 (0.0-0.2); BASO % 0.4 % (0.0-2.0); EOS # 0.1 K/mm3 (0.0-0.7); EOS % 0.8 % (0.0-4.0); GRAN # 11.1 K/mm3 (1.4-6.5); GRAN % 84.5 % (42.2-75.2); HEMATOCRIT 44.9 % (42.0-52.0); LYMPH # 0.9 K/mm3 (1.2-3.4); LYMPH % 6.8 % (20.0-51.0); MEAN CELL VOLUME 85 fl (80.0-100.0); MEAN CORPUSCULAR HEMOGLOBIN 29 pg (27-31); MEAN CORPUSCULAR HGB CONC 33 g/dl (33.0-37.0); MEAN PLATELET VOLUME 11.4 fl (7.4-10.4); MONO # 0.9 K/mm3 (0.1-0.6); MONO % 6.5 % (1.7-9.3); PLATELET COUNT 193 K/mm3 (130-400); RED BLOOD COUNT 5.26 M/mm3 (4.20-5.60); REDCELL DISTRIBUTION WIDTH-CV 18.5 % (11.5-14.5)
[2022-01-29 22:59] LABS: INR 1.4 (0.8-3.0); PROTHROMBIN TIME 16.5 SECONDS (9.7-12.8)
[2022-01-29 23:01] LABS: PARTIAL THROMBOPLASTIN TIME 43.6 SECONDS (26.0-37.0)
[2022-01-29] MEDS ORDERED: LEVAQUIN 5500 MG/TA1 PO (23:07)
[2022-01-29] MEDS ORDERED: BACTRIM DS 8001 TAB PO (23:07)
[2022-01-29 23:08] LABS: ALBUMIN 3.2 gm/dL (3.4-4.8); BILIRUBIN,TOTAL 0.6 mg/dL (0.2-1.2); CALCIUM 9.3 mg/dL (8.4-10.2); CREATININE, serum 1.97 mg/dL (0.72-1.25); POTASSIUM 4.2 mmol/L (3.5-4.5); TOTAL PROTEIN 7.2 gm/dL (6.2-8.1)
[2022-01-30 01:38] VITALS: BP 109/73; PULSE 70; TEMP 98
--- NOTE | 2022-01-30 02:06 | NUR ---
0136 PATIENT ARRIVED TO THE UNIT BY WHEELCHAIR AND TRANSFERED TO BARIATRIC BED WITH ASSIST OF TWO. PATIENT IS FALLING ASLEEP DURING INTAKE BY THIS NURSE. THIS NURSE ATTEMPTS TO SET-UP PT CPAP MACHINE BUT FOUND PATIENT BROUGHT WAREHOUSE ORDER SELECTOR CABLES INSTEAD OF PLUG FOR CPAP MACHINE. PATIENT IS PUT ON 2L O2 AT THIS TIME FOR SLEEP, PATIENT IS AT 95% ON 2L. PATIENT IS SPEAKIN NONSENSICAL AT THIS TIME. PATIENT QUESTIONS "WHO HAS A DOG IN HERE?" "WATCH WHAT YOU SHAKE AND WHERE YOU SHAKE IT" "RUN BOY RUN". WHEN THIS NURSE ASKS WHAT PATIENT SAID HE STATED THERE WERE 14 CATS CHASING A BOY. PATIENT STATES TO THIS NURSE THAT HE DOES NOT SMOKE AND REPORTED TO HOSPITALIST DIFFERENTLY. PATIENT STATES HE BREWS HIS OWN ALCOHOL AT HOME WHICH HE DRINKS TWICE A MONTH. PATIENT DENIES PAIN DURING ASSESSMENT PERFORMED DURING THIS TIME. PATIENT IS ORIENTED TO ROOM AND GIVEN WELCOME BAG AND WATER. PATIENT DENIES PAIN, NEEDS OR CONCERNS. PATIENT ENCOUARGED TO USE CALL LIGHT IN HIS HANDS WITH ANY NEEDS OR CONCERNS.
[2022-01-30 04:44] VITALS: BP 98/77; PULSE 70; TEMP 98
--- NOTE | 2022-01-30 06:33 | NUR ---
PATIENT PULLED OUT CATHETER FROM LEFT HAND AND WAS REPLACED IN RIGHT HAND AND WRAPPED WITH COBAN. YOUNG WAS PLACED FOR ACURATE I&O. CALL LIGHT REMAINS IN PLACE.
--- NOTE | 2022-01-30 06:50 | NUR ---
bedside shift report recieved from BRENT jessica
[2022-01-30 06:51] LABS: COLLECTION METHOD CLEAN CATCH
[2022-01-30 07:03] LABS: CALCIUM 9.1 mg/dL (8.4-10.2); CREATININE, serum 1.77 mg/dL (0.72-1.25); MAGNESIUM 2.2 mg/dL (1.6-2.6); POTASSIUM 3.6 mmol/L (3.5-4.5)
[2022-01-30 07:11] LABS: TROPONIN-I 6 HR POST INITIAL 0.017 ng/mL (0.00-0.033)
[2022-01-30 07:14] VITALS: BP 106/75; PULSE 69; TEMP 97.5
[2022-01-30 07:15] LABS: HEMATOCRIT 41.7 % (42.0-52.0); HEMOGLOBIN 14.2 g/dl (13.5-18.0); MEAN CELL VOLUME 84 fl (80.0-100.0); MEAN CORPUSCULAR HEMOGLOBIN 29 pg (27-31); MEAN CORPUSCULAR HGB CONC 34 g/dl (33.0-37.0); PLATELET COUNT 183 K/mm3 (130-400); RED BLOOD COUNT 4.97 M/mm3 (4.20-5.60); REDCELL DISTRIBUTION WIDTH-CV 17.6 % (11.5-14.5)
[2022-01-30 07:26] LABS: MUCOUS Present (NOT PRESENT); SQUAMOUS EPITHELIAL None Seen /hpf (0-10); URINE BACTERIA None Seen /hpf (NONE SEEN); URINE RBC 0-2 /hpf (0-2)
[2022-01-30 07:31] LABS: URINE APPEARANCE Clear (CLEAR/HAZY); URINE COLOR Yellow (YELLOW)
[2022-01-30 07:32] LABS: URINE BLOOD Negative (NEGATIVE); URINE GLUCOSE Negative (NEGATIVE); URINE KETONE Negative (NEGATIVE); URINE NITRATE Negative (NEGATIVE); URINE PROTEIN(semi-quant) Negative (NEGATIVE); URINE UROBILINOGEN 0.2 E.U/dL (0.2-1.0)
[2022-01-30 07:59] LABS: TRICYCLIC ANTIDEPRESS URINE POSITIVE
--- NOTE | 2022-01-30 08:45 | NUR ---
assisted up to bathroom with assist of one, moves with slow steady gait, had large bowel movement, then assisted out and into recliner for breakfast, full assessment completed, see interventions for further info, has small sores over entire body and legs with venous stasis, has bandage on right first toe and middle two toes on left, he denies needs at this time, is at bedside
[2022-01-30 08:46] LABS: BAND 20 % (0-10); EOSINOPHIL 2 % (0-4); LYMPHOCYTE 14 % (20.0-51.0); NEUTROPHILS 61 % (42.0-75.2); PLATELET ESTIMATE NORMAL (NORMAL)
--- NOTE | 2022-01-30 10:15 | NUR ---
assisted back to bed for echo
--- NOTE | 2022-01-30 11:07 | NUR ---
had a large spot of blood on chux from around catheter site when assisted out of bed, area around meatus and top of thighs bloody, area cleaned and no new bleeding noted, urine remains red but clear, Dr Barros notified
[2022-01-30 11:35] VITALS: BP 97/75; PULSE 70; TEMP 97.4
--- NOTE | 2022-01-30 12:18 | NUR ---
sitting up in bed eating lunch, denies pain or needs, remains at bedside
--- NOTE | 2022-01-30 12:21 | NUR ---
notified Dr Anderson regarding consult, spoke with surgery nurse who will let him know
--- NOTE | 2022-01-30 12:51 | NUR ---
lasix drip started, continues to have small amount bleeding around meatus and urine remains red
[2022-01-30] MEDS ORDERED: CORDARONE200 MG/TAB PO (13:13)
[2022-01-30] MEDS ORDERED: GLUCOPHAGE1000 MG PO (13:14)
[2022-01-30] MEDS ORDERED: ZESTRIL2.5 MG PO (13:14)
[2022-01-30] MEDS ORDERED: GLUCOPHAGE500 MG/TAB PO (13:15)
[2022-01-30] MEDS ORDERED: ZAROXOLYN5 MG PO (13:16)
--- NOTE | 2022-01-30 15:15 | NUR ---
resting in bed,
--- NOTE | 2022-01-30 15:24 | NUR ---
Seed Yeast Operator met with patient and patient's , Marta to discuss patient being downgraded to observation status. Patient's verbalized frustration however patient stated "I accept my change in status." FRANCO discussed discharge planning with patient and his . Patient lives in [place] and sees Dr. Olmedo for primary care. Patient obtains medications from [email or web address] and Marta advised they obtain his insulin directly from the drug lead shipper. Patient has a cane, walker, and CPAP at home. Marta advised patient was independent with ADLS up until four days ago. FRANCO discussed Home Health services and provided Medicare.gov list of Home Health agencies that serve [place]. Marta will review this with patient and FRANCO will follow up. Discharge Plan: Home with Home Health
--- NOTE | 2022-01-30 16:21 | NUR ---
Dr Anderson in to see patient
[2022-01-30 16:34] VITALS: BP 93/70; PULSE 69; TEMP 97.3
--- NOTE | 2022-01-30 16:41 | NUR ---
meter/relay technician in to complete renal ultrasoud
--- NOTE | 2022-01-30 18:27 | NUR ---
marketing technologist reported was not able to get a signal, batteries and electrodes changed and reported to marketing technologist and still no signal
--- NOTE | 2022-01-30 18:47 | NUR ---
bedside shift report given to BRENT Lee
--- NOTE | 2022-01-30 19:12 | NUR ---
PATIENT LAYING IN BED WITH AT BEDSIDE IN RECLINER. PATIENT IS ALERT AND ORIENTED AT THIS TIME. PATIENT DENIES PAIN, NEEDS OR CONCERNS. CALL LIGHT IS WITHIN REACH AND PATIENT ENCOURAGED TO USE WITH ANY NEEDS OR CONCERNS.
[2022-01-30 20:45] VITALS: BP 108/68; PULSE 63; TEMP 97.9
[2022-01-31 00:06] VITALS: BP 99/68; PULSE 97; TEMP 97.9
[2022-01-31 04:19] VITALS: BP 96/73; PULSE 68; TEMP 98
--- NOTE | 2022-01-31 05:53 | NUR ---
PATIENT HAS HAD EPISODES OF NONSENSICAL WORDS. PATIENT DENIES NEEDS OR CONCERNS AND STATES THAT "AT LEAST PAIN IS THE LAST THING I HAVE TO WORRY ABOUT." CALL LIGHT WITH IN REACH. PATIENT ENCOURAGED TO CALL WITH ANY NEEDS OR CONCERNS. PATIENT EXPRESSES APPRECIATION TO THIS NURSE.
[2022-01-31 06:35] LABS: BASO # 0.1 K/mm3 (0.0-0.2); BASO % 0.5 % (0.0-2.0); EOS # 0.1 K/mm3 (0.0-0.7); EOS % 1.3 % (0.0-4.0); GRAN # 7.1 K/mm3 (1.4-6.5); GRAN % 76.9 % (42.2-75.2); HEMATOCRIT 41.5 % (42.0-52.0); HEMOGLOBIN 14.3 g/dl (13.5-18.0); LYMPH # 1.1 K/mm3 (1.2-3.4); LYMPH % 12.3 % (20.0-51.0); MEAN CELL VOLUME 82 fl (80.0-100.0); MEAN CORPUSCULAR HEMOGLOBIN 28 pg (27-31); MEAN CORPUSCULAR HGB CONC 35 g/dl (33.0-37.0); MEAN PLATELET VOLUME 11.6 fl (7.4-10.4); MONO # 0.7 K/mm3 (0.1-0.6); PLATELET COUNT 175 K/mm3 (130-400); RED BLOOD COUNT 5.05 M/mm3 (4.20-5.60); REDCELL DISTRIBUTION WIDTH-CV 17.6 % (11.5-14.5)
[2022-01-31 06:54] LABS: ALBUMIN 2.7 gm/dL (3.4-4.8); CALCIUM 8.8 mg/dL (8.4-10.2); CREATININE, serum 1.21 mg/dL (0.72-1.25); MAGNESIUM 1.9 mg/dL (1.6-2.6); PHOSPHOROUS 3.1 mg/dL (2.3-4.7)
[2022-01-31 07:05] LABS: POTASSIUM 2.7 mmol/L (3.5-4.5)
[2022-01-31 07:21] VITALS: BP 95/75; PULSE 75; TEMP 97.5
--- NOTE | 2022-01-31 07:22 | NUR ---
K+ 2.[address] Barros, stated will put orders in.
--- NOTE | 2022-01-31 08:00 | NUR ---
Patient is sleeping, difficult to arouse. Woke up with movement and calling him. He took potassium replacement, mg is infusing. Telemetry in place, paced. At RA. NPO from midnight. Getting lasix at 5 ml/hr. arrives and shows the wounds in BLE and feet. She changed dressings. Assessment completed, no other needs at this time. Call light within reach.
--- NOTE | 2022-01-31 11:50 | NUR ---
E COMMERCE SPECIALIST reporte blood sugar 61, orange juice provided, and lunch in its way. Continue monitoring.
[2022-01-31 11:55] VITALS: BP 102/68; PULSE 67; TEMP 97.5
--- NOTE | 2022-01-31 15:12 | NUR ---
Label Designer contacted patient's , Marta by phone to discuss OT recommendation for Home Health vs Post Acute Rehab. Marta declined rehab and stated the plan is home with HH services. Marta has not decided on HH agency yet but will continue to review Medicare.gov list of HH agencies SW provided. Discharge Plan: Home with HH
--- NOTE | 2022-01-31 16:08 | NUR ---
Patient raúl was taken after petition.
[2022-01-31 16:35] VITALS: BP 125/78; PULSE 69; TEMP 97.6
[2022-01-31 19:52] VITALS: BP 103/64; PULSE 65; TEMP 98.5
[2022-02-01 00:35] VITALS: BP 107/77; PULSE 70; TEMP 97.4
--- NOTE | 2022-02-01 04:14 | NUR ---
ASSESSMENT COMPLETE FOR RECRUITER ACCOUNT MANAGER. PT RESTING IN BED NAPPING. PT A&O X 4. PT DENIED GENERAL PAIN, CHEST PAIN, PALPITATIONS, SOB, N,V,D OR DIZZINESS. PT HAS HAD A PRETTY UNEVENTFUL NIGHT THUS FAR. PT EXPRESSED NO ADDITIONAL NEEDS AT THIS TIME. CALL LIGHT WITHIN REACH.
[2022-02-01 04:47] VITALS: BP 102/67; PULSE 75; TEMP 97.8
[2022-02-01 06:38] LABS: BASO % 0.5 % (0.0-2.0); EOS # 0.2 K/mm3 (0.0-0.7); EOS % 1.8 % (0.0-4.0); GRAN # 6.8 K/mm3 (1.4-6.5); HEMATOCRIT 44.9 % (42.0-52.0); HEMOGLOBIN 14.9 g/dl (13.5-18.0); LYMPH # 1.1 K/mm3 (1.2-3.4); LYMPH % 12.7 % (20.0-51.0); MEAN CELL VOLUME 84 fl (80.0-100.0); MEAN CORPUSCULAR HEMOGLOBIN 28 pg (27-31); MEAN CORPUSCULAR HGB CONC 33 g/dl (33.0-37.0); MEAN PLATELET VOLUME 10.8 fl (7.4-10.4); MONO # 0.6 K/mm3 (0.1-0.6); MONO % 7.1 % (1.7-9.3); PLATELET COUNT 173 K/mm3 (130-400); RED BLOOD COUNT 5.32 M/mm3 (4.20-5.60)
[2022-02-01 06:52] LABS: ALBUMIN 2.9 gm/dL (3.4-4.8); CALCIUM 9.2 mg/dL (8.4-10.2); CREATININE, serum 1.11 mg/dL (0.72-1.25); MAGNESIUM 1.7 mg/dL (1.6-2.6); PHOSPHOROUS 2.3 mg/dL (2.3-4.7)
[2022-02-01 06:59] LABS: INR 1.5 (0.8-3.0); PROTHROMBIN TIME 17.8 SECONDS (9.7-12.8)
[2022-02-01 07:48] VITALS: BP 107/77; PULSE 69; TEMP 98
--- NOTE | 2022-02-01 08:17 | NUR ---
Patient resting in bed, CPAP on. No complaints of pain. Patient alert and oriented. Lower extremities with bandages on open ulcers, some able to be visualized, others with gauze adhered to wound base. Unable to remove. Will need to be soaked off. Patient plan for ANA this morning. Potassium replacement needed today, lasix gtt @5.5ml/hr. Meds on hold for NPO until post ANA.
[2022-02-01 12:48] VITALS: BP 98/73; PULSE 68; TEMP 98
[2022-02-01 13:03] VITALS: BP 103/70; PULSE 67; TEMP 98
[2022-02-01 16:37] VITALS: BP 107/54; PULSE 70; TEMP 98.5
--- NOTE | 2022-02-01 17:44 | NUR ---
Patient worked well with PT/OT today, with no complaints of pain. Tolerated ANA well today. Patient swallow reflex cleared, back on normal diet. Patient treating wounds on feet and lower extremities per [facility] instructions. Patient on strict I & O. In chair at end of shift. Lasix gtt on at 5.5mls/hr. Potassium replacement of 80meq. Recheck 3 hours after completion of last bag. PICC lined placed in [facility], in anticipation of Heart Cath tomorrow, with more Potasstium replacement IV, continued Lasix gtt, and possible IV antibiotics for Urine/wounds management.
--- NOTE | 2022-02-01 19:00 | NUR ---
PT IS SITTING IN RECLINER. YOUNG IN PLACE DRAINING RED URINE, PT STATES THAT IT LOOKS BETTER THAN WHEN HE ARRIVED. DENIES ANY CONCERNS OR NEEDS AT THIS TIME. FAMILY IS IN THE ROOM AT BEDSIDE. NO OTHER CONCERNS.
[2022-02-02] VITALS (16 sets, daily range): BP systolic 83–121; BP diastolic 55–105; PULSE 63–95; TEMP 97.4–98.6
[2022-02-02 07:22] LABS: HEMATOCRIT 42.7 % (42.0-52.0); HEMOGLOBIN 14.6 g/dl (13.5-18.0); MEAN CELL VOLUME 83 fl (80.0-100.0); MEAN CORPUSCULAR HEMOGLOBIN 28 pg (27-31); MEAN CORPUSCULAR HGB CONC 34 g/dl (33.0-37.0); MEAN PLATELET VOLUME 11.8 fl (7.4-10.4); PLATELET COUNT 175 K/mm3 (130-400); RED BLOOD COUNT 5.14 M/mm3 (4.20-5.60)
[2022-02-02 07:28] LABS: ALBUMIN 2.8 gm/dL (3.4-4.8); CALCIUM 8.7 mg/dL (8.4-10.2); CREATININE, serum 1.02 mg/dL (0.72-1.25); MAGNESIUM 1.7 mg/dL (1.6-2.6); PHOSPHOROUS 2.6 mg/dL (2.3-4.7); POTASSIUM 3.7 mmol/L (3.5-4.5)
--- NOTE | 2022-02-02 08:00 | NUR ---
Patient sitting up in the recliner. A&Ox4. VSS. IV CDI, fluids infusing. Denies pain and discomfort. Patient waiting on his to arrive before ordering breakfast. Call light within reach
[2022-02-02 08:35] LABS: BAND 14 % (0-10); BASOPHIL 1 % (0-2); EOSINOPHIL 2 % (0-4); LYMPHOCYTE 13 % (20.0-51.0); NEUTROPHILS 67 % (42.0-75.2)
[2022-02-02 08:36] LABS: ANISOCYTOSIS 1+; PLATELET ESTIMATE NORMAL (NORMAL)
[2022-02-02 10:53] LABS: CALCIUM 8.3 mg/dL (8.4-10.2); POTASSIUM 3.9 mmol/L (3.5-4.5)
[2022-02-02 10:56] LABS: INR 1.6 (0.8-3.0)
[2022-02-02 10:59] LABS: PARTIAL THROMBOPLASTIN TIME 39.5 SECONDS (26.0-37.0)
--- NOTE | 2022-02-02 15:31 | NUR ---
Terrazzo Finisher Helper attempted to contact patient's to follow up on Home Health and left a message.
--- NOTE | 2022-02-02 17:35 | NUR ---
Patient taken to manager cardiac cath
--- NOTE | 2022-02-02 19:10 | NUR ---
Patient to room 311 from the cathode ray tube assembler. A&Ox4. IV CDI fluids by gravity. Post OP VS monitored. at the bedside. RT groin site CDI. Safe guard on site. 30 cc. Bilateral knee braces s/t patient moving legs. Denies pain and discomfort. Khanna intact. Call light within reach
[2022-02-03] VITALS (8 sets, daily range): BP systolic 78–105; BP diastolic 49–65; PULSE 65–104; TEMP 97.5–97.8
--- NOTE | 2022-02-03 05:55 | NUR ---
ASSESSMENT COMPLETE FOR RELEASE OF INFORMATION SPECIALIST. PT RESTING IN BED RECOVERING FROM HIS HEART CATH WITH HIS BY HIS SIDE. RT FEMORAL SITE CDI, WITH NO SIGNS OF BLEEDING OR HEMATOMA. PT DENIED GENERAL PAIN, CHEST PAIN, PALPITATIONS, SOB, N,V,D OR DIZZINESS. PT HAD SOFT B/P'S THROUGHOUT SHIFT. HOSPITALIST CALLED. ORDERED TO CONTINUE MONITORING. SAFEGUARD BALLOON TO RT FEMORAL SLOWLY DEFLATED WITH NO SIGNS OF BLEEDING OR HEMATOMA. PT'S BLD GLUCOSE 99. PT'S NIGHT INSULIN HELD. HOSPITALIST INFORMED. WILL CONTINUE TO MONITOR. CALL LIGHT WITHIN REACH.
[2022-02-03 06:53] LABS: BASO # 0.1 K/mm3 (0.0-0.2); BASO % 0.7 % (0.0-2.0); EOS # 0.2 K/mm3 (0.0-0.7); EOS % 2.8 % (0.0-4.0); GRAN # 5.4 K/mm3 (1.4-6.5); GRAN % 71.7 % (42.2-75.2); HEMOGLOBIN 14.5 g/dl (13.5-18.0); LYMPH # 1.1 K/mm3 (1.2-3.4); LYMPH % 13.9 % (20.0-51.0); MEAN CELL VOLUME 86 fl (80.0-100.0); MEAN CORPUSCULAR HEMOGLOBIN 29 pg (27-31); MEAN CORPUSCULAR HGB CONC 34 g/dl (33.0-37.0); MEAN PLATELET VOLUME 10.9 fl (7.4-10.4); MONO # 0.7 K/mm3 (0.1-0.6); MONO % 9.7 % (1.7-9.3); PLATELET COUNT 158 K/mm3 (130-400); RED BLOOD COUNT 5.01 M/mm3 (4.20-5.60); REDCELL DISTRIBUTION WIDTH-CV 18.3 % (11.5-14.5)
[2022-02-03 07:20] LABS: ALBUMIN 2.5 gm/dL (3.4-4.8); CALCIUM 8.4 mg/dL (8.4-10.2); CREATININE, serum 0.77 mg/dL (0.72-1.25); MAGNESIUM 1.7 mg/dL (1.6-2.6); PHOSPHOROUS 2.8 mg/dL (2.3-4.7); POTASSIUM 3.4 mmol/L (3.5-4.5)
--- NOTE | 2022-02-03 09:00 | NUR ---
Patient is resting in bed, with at the bedside. Alert and oriented, VSS. Cath mendez removed, right femoral balloon compression removed. Dressing changed. Assisted to the chair. Medications provided, Assessment completed. No other needs at this time. Call light within reach.
[2022-02-03] MEDS ORDERED: ENTRESTO 24 MG1 EACH PO (14:00)
[2022-02-03] MEDS ORDERED: TOPROL XL 50MG50 MG PO (14:00)
[2022-02-03] MEDS ORDERED: ALDACTONE 25MG25 M1 PO (14:01)
[2022-02-03] MEDS ORDERED: DEMADEX 20MG20 M1 PO (14:03)
--- NOTE | 2022-02-03 14:34 | NUR ---
Lucille KENNEDY informs Dr. Capellan is completing discharge paperwork for patient recommending HH; chart review indicates family had not yet established a choice of HH agencies. Studio Camera Operator met with patient and spouse at bedside; patient gives verbal consent to talk to him with spouse present. Spouse informs she has not yet determined a HH agency, and she has a preference for patient to return to [facility] outpatient physical therapy services, which are currently on hold, will likely need new orders for patient to return. Patient and spouse confirm that spouse is patient's primary caregiver, providing patient with assist for most of his ADLs, and his IADLs. Patient states he is able to transfer independently and walk with a walker at this time. Patient asks about having heard that his spouse could become his paid caregiver; spouse informs she has retired after 40 years as a nurse, and she is able and willing to care for patient but as they are both on fixed income following longterm, additional income would be helpful. Studio Camera Operator educates patient and spouse on HCBS waiver services provided through contact to the [facility]. They express interest. They informed of one medication that is very expensive, that cannot be substituted for another. Spouse is going to see if there is a prescription assistance program through the [employer] as she has already been working to establish patient with two other medication programs, noting patient's deductible for prescription coverage is not yet met. Patient and spouse are educated on possibility to consult with insurance care specialists through [facility], as well, to help assure they are choosing a Medicare plan that best meets patient needs, indicating he has had the same plan for 10 years and likely, his needs are now changed. Studio Camera Operator updated Lucille KENNEDY on patient and spouse preference to return to outpatient PT and seek in-home community support services. Dr. Capellan is consulted and in agreement to plan, updating discharge orders to reflect. Patient and spouse are updated; they accept a handout with contact information for the [facility]; spouse to follow up with [facility] to re-establish patient outpatient physical therapy services there. Patient and spouse express no further concerns; no further needs identified at this time. *Discharge plan: Patient to discharge to home with spouse as primary caregiver, outpatient physical therapy services at [facility] re-established, and inquiry for in-home community support services and spousal paid caregiving possibilities, prescription assistance plan and Medicare coverage counseling*
--- NOTE | 2022-02-03 15:52 | NUR ---
Patient and were provided with discharge information, all questions answered. PICC line discontinued by STEPHEN Garduno, Telemetry was discontinued as well. Patient is taken by DILEEP Alonzo by wheelchair. waiting in the ER entrance.
== END 2022-02-03 15:54 | disposition home or self-care (01) | DRG 286 ==
LOC: COL.ER 21:36 → MEDICAL 23:35
PROVIDERS: Emergency Medicine; Internal Medicine; Student in an Organized Health Care Education/Training Program; ADMIT Student in an Organized Health Care Education/Training Program
PROC: 02HV33Z Insertion of Infusion Device into Superior Vena Cava, Percutaneous Approach (ICD-10-PCS; 2022-02-01)
PROC: 4A023N7 Measurement of Cardiac Sampling and Pressure, Left Heart, Percutaneous Approach (ICD-10-PCS; principal; 2022-02-02)
PROC: B2111ZZ Fluoroscopy of Multiple Coronary Arteries using Low Osmolar Contrast (ICD-10-PCS; 2022-02-02)
PROC: B2131ZZ Fluoroscopy of Multiple Coronary Artery Bypass Grafts using Low Osmolar Contrast (ICD-10-PCS; 2022-02-02)
DX: I13.0 Hypertensive heart and chronic kidney disease with heart failure and stage 1 through stage 4 chronic kidney disease, or unspecified chronic kidney disease (principal); I50.23 Acute on chronic systolic (congestive) heart failure; J91.8 Pleural effusion in other conditions classified elsewhere; N17.9 Acute kidney failure, unspecified; E87.1 Hypo-osmolality and hyponatremia; Z68.41 Body mass index [BMI] 40.0-44.9, adult; I25.10 Atherosclerotic heart disease of native coronary artery without angina pectoris; E11.22 Type 2 diabetes mellitus with diabetic chronic kidney disease; N18.2 Chronic kidney disease, stage 2 (mild); E87.8 Other disorders of electrolyte and fluid balance, not elsewhere classified; D72.829 Elevated white blood cell count, unspecified; R31.0 Gross hematuria; I49.3 Ventricular premature depolarization; E66.01 Morbid (severe) obesity due to excess calories; I48.0 Paroxysmal atrial fibrillation; I08.1 Rheumatic disorders of both mitral and tricuspid valves; E11.42 Type 2 diabetes mellitus with diabetic polyneuropathy; B95.62 Methicillin resistant Staphylococcus aureus infection as the cause of diseases classified elsewhere; E78.5 Hyperlipidemia, unspecified; M62.81 Muscle weakness (generalized); I25.5 Ischemic cardiomyopathy; G47.33 Obstructive sleep apnea (adult) (pediatric); F32.A Depression, unspecified; Z79.4 Long term (current) use of insulin; Z88.8 Allergy status to other drugs, medicaments and biological substances; Z91.048 Other nonmedicinal substance allergy status; Z72.89 Other problems related to lifestyle; I25.2 Old myocardial infarction; Z95.5 Presence of coronary angioplasty implant and graft; Z95.1 Presence of aortocoronary bypass graft; Z79.82 Long term (current) use of aspirin; Z95.0 Presence of cardiac pacemaker; Z87.891 Personal history of nicotine dependence; Z23 Encounter for immunization
CPT/HCPCS: 99233-AI; 99239; C1751; C1760; C1769; C1894; J1644; J1815; J1940; J2250; J2704; J3010; J3475; J3480; L1830; Q9967